=== PATIENT | female | born 1940 | race Two or more races ===

== ENCOUNTER 2018-05-24 11:35 | Inpatient (IN) | payer MEDICARE, OTHER ==
[~2018-05-24] VITALS: Ht 152.4 cm; Wt 61.8 kg
--- NOTE | 2018-05-24 12:00 | NUR ---
PT BIB [facility] FROM HOME FOR CHRONIC BACK PAIN THAT HAS WOSRENED LAST NIGHT, NAUSEA THIS MORNING. 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 DIFFERING BP IN EACH ARM (L 60 SBP, R 105 SBP). IV X2 IN PLACE ON ARRIVAL, GIVEN 4 ZOFRAN AND APPROX 800 ML NS IN ROUTE. CONNECTED TO ALL MONITORING, VSS, A&OX4, SLIGHTLY PALE COLOR. PREFORMED FAST EXAM, AAA SUSPECTED. ORDERS RECEIVED. ISTAT LABS TO BE DRAWN AND PT TO CT. AWAITING
--- NOTE | 2018-05-24 12:03 | NUR ---
PT BACK FROM CT AT THIS TIME. REPORT GIVEN TO JONO SOLIS.
[2018-05-24] MEDS ORDERED: ONDANSETRON 2MG/ML, 2ML ONE (12:10)
[2018-05-24] MEDS ORDERED: FENTANYL PF 100 MCG/2ML ONE (12:11)
[2018-05-24 12:15] LABS: BASOPHILS # (AUTO) 0.03 x10^3/uL (0-0.1); BASOPHILS % (AUTO) 0 % (0-1); EOSINOPHILS % (AUTO) 1 % (1-7); LYMPHOCYTES # (AUTO) 2.26 x10^3/uL (1-3.4); LYMPHOCYTES % (AUTO) 17 % (22-44); MD NO; MEAN CORPUSCULAR HEMOGLOBIN 31.8 pg (27.0-34.8); MEAN CORPUSCULAR HGB CONC 33.6 g/dL (32.4-35.8); MEAN CORPUSCULAR VOLUME 94.8 fL (80-100); MEAN PLATELET VOLUME 8.4 fL (7.4-10.4); MONOCYTES # (AUTO) 0.54 x10^3/uL (0.2-0.8); MONOCYTES % (AUTO) 4 % (2-9); NEUTROPHILS # (AUTO) 10.67 x10^3/uL (1.8-6.8); NEUTROPHILS % (AUTO) 79 % (42-75); PLATELET COUNT 226 x10^3/uL (130-400); RED CELL DISTRIBUTION WIDTH 13.1 % (9.6-15.2)
--- NOTE | 2018-05-24 12:16 | NUR ---
PT STATES FOOTE WAS GOING TO THROW UP. PT DRY HEAVED AND THEN BECAME INCREASINGLY LETHARGIC. PT IS CURRENTLY FOLLOWING COMMANDS INTERMITTENTLY, NOT ANSWERING QUESTION. MD TO BEDSIDE. RT TO BEDSIDE.
--- NOTE | 2018-05-24 12:24 | NUR ---
1ST UNIT O NEG PER MASSIVE INFUSION POLICY RUNNING NOW. LEVEL 1 INFUSING
[2018-05-24] MEDS ORDERED: HYDROmorphone 1 MG/ML, 1ML IV ONE (12:30)
[2018-05-24] MEDS ORDERED: FENTANYL PF 100 MCG/2ML IV ONE ×2 (12:30)
[2018-05-24] MEDS ORDERED: ONDANSETRON 2MG/ML, 2ML IVPush ONE (12:30)
--- NOTE | 2018-05-24 12:30 | NUR ---
2ND UNIT ON NEG PRBC INFUSING NOW. Addendum: 05/24/18 at 1230 by BLAYNE 2ND UNIT O-NEG PRBC INFUSING NOW.
[2018-05-24] MEDS ORDERED: PROTAMINE SULFATE 10 MG/ML, 5ML ONE (12:33)
[2018-05-24] MEDS ORDERED: NITROGLYCERIN 5 MG/ML, 10ML ONE (12:33)
[2018-05-24] MEDS ORDERED: FENTANYL PF 250 MCG/5ML ONE (12:34)
[2018-05-24] MEDS ORDERED: HEPARIN 1,000 UNITS/ML, 30ML ONE (12:34)
[2018-05-24] MEDS ORDERED: BACITRACIN 50,000 UNIT ONE (12:34)
[2018-05-24] MEDS ORDERED: THROMBIN 20,000 UNIT VIAL TP ONE (12:34)
[2018-05-24] MEDS ORDERED: HEPARIN 1,000 UNITS/ML, 10ML ONE (12:34)
--- NOTE | 2018-05-24 12:36 | NUR ---
2 UNITS PRBC COMPLETE. PT HAS HAD APPROX 100 ML NS THUS FAR.
[2018-05-24] MEDS ORDERED: KETAMINE 50 MG/ML, 10ML ONE (12:39)
--- NOTE | 2018-05-24 12:43 | NUR ---
PT HAD APPROX 6 SECOND RUN OF V TAC. PACER PADS IN PLACE.
--- NOTE | 2018-05-24 12:47 | NUR ---
REPORT TO Lissette HARRELL, ANESTHESIA, AT BEDSIDE.
--- NOTE | 2018-05-24 12:48 | NUR ---
1 LITER NS INFUSED THUS FAR IN ED.
--- NOTE | 2018-05-24 12:53 | NUR ---
REPORT TO OR, RN
[2018-05-24] MEDS ORDERED: EPINEPHRINE 1 MG/ML, 1ML ONE ×2 (13:00→13:09)
[2018-05-24] MEDS ORDERED: BUPIVACAINE/PF 0.25% ONE (13:00)
[2018-05-24] MEDS ORDERED: PHENYLEPHRINE 10 MG/ML ONE (13:09)
[2018-05-24] MEDS ORDERED: SUCCINYLCHOLINE 20 MG/ML, 10ML ONE ×2 (13:09→15:12)
[2018-05-24] MEDS ORDERED: ROCURONIUM 10 MG/ML,10ML ONE (13:09)
[2018-05-24] MEDS ORDERED: CALCIUM CHLORIDE 10%, 10ML SYR ONE (13:09)
[2018-05-24] MEDS ORDERED: KETAMINE 100 MG/ML, 5ML ONE (13:09)
[2018-05-24] MEDS ORDERED: SODIUM BICARB 8.4%, 50ML SYRINGE ONE (13:09)
--- NOTE | 2018-05-24 13:11 | NUR ---
PT TO OR.
[2018-05-24] MEDS ORDERED: MIDAZOLAM 1 MG/ML, 2ML ONE (13:34)
[2018-05-24] MEDS ORDERED: INSULIN SINGLE DOSE, ER SQ-INSULIN ONE (13:55)
[2018-05-24] MEDS ORDERED: OMNIPAQUE 350 MG/ML, 100ML BOTTLE ONE (14:03)
[2018-05-24] MEDS ORDERED: CEFAZOLIN 1,000 MG ONE (15:12)
[2018-05-24] MEDS ORDERED: PROPOFOL 10 MG/ML, 20ML ONE (15:12)
[2018-05-24] MEDS ORDERED: ROCURONIUM 10MG/ML,5ML ONE (15:12)
[2018-05-24] MEDS ORDERED: NS + 20MEQ KCL 1,000 ML IV SCH (15:47)
[2018-05-24] MEDS ORDERED: PROPOFOL 100 ML IV ONE (15:52)
[2018-05-24] MEDS ORDERED: OXYcodone IR 5MG TABLET PO PRN (16:00)
[2018-05-24] MEDS ORDERED: POLYETHYLENE GLYCOL 17 GM PACKET PO PRN (16:00)
[2018-05-24] MEDS ORDERED: ACETAMINOPHEN 325 MG TABLET PO PRN (16:00)
[2018-05-24] MEDS ORDERED: NITROPRUSSIDE 100 MG in DEXTROSE 5% 246 ML IV PRN (16:00)
[2018-05-24] MEDS ORDERED: BISACODYL 10 MG SUPP PR PRN (16:00)
[2018-05-24] MEDS ORDERED: NOREPINEPHRINE 4 MG in SODIUM CHLORIDE 0.9% 246 ML IV PRN (16:00)
[2018-05-24] MEDS: PROPOFOL 100 ML IV PRN (16:06)
[2018-05-24] MEDS ORDERED: NITROPRUSSIDE 50 MG in SODIUM CHLORIDE 0.9% 248 ML IV PRN (16:30)
[2018-05-24] MEDS ORDERED: CEFAZOLIN PMX 1GM/50ML 50 ML IVPB SCH (16:30)
[2018-05-24] MEDS ORDERED: LACTATED RINGERS 1,000 ML IV SCH (16:30)
[2018-05-24] MEDS: METOPROLOL 1 MG/ML, 5ML IVPush SCH ×2 (16:30→22:30)
[2018-05-24] MEDS ORDERED: ONDANSETRON 2MG/ML, 2ML IV PRN (16:30)
[2018-05-24] MEDS ORDERED: PROPOFOL 100 ML IV PRN (17:10)
[2018-05-24] MEDS ORDERED: PHARMACY MAY ADJ FOR RENAL FX MC SCH (17:30)
[2018-05-24] MEDS ORDERED: LIDOCAINE-MPF 1%, 2ML ENDO PRN (17:30)
[2018-05-24 18:45] LABS: INTERNATIONAL NORMALIZED RATIO 1.22 (0.93-1.1); PROTHROMBIN TIME 12.7 Seconds (9.6-11.5)
[2018-05-24 18:47] LABS: ANION GAP 13 mmol/L (5-15); CALCIUM 9.2 mg/dL (8.5-10.1); CHLORIDE 120 mmol/L (98-107); CREATININE 0.97 mg/dL (0.55-1.02); TRIGLYCERIDES 122 mg/dL (50-200)
[2018-05-24] MEDS: SODIUM CHLORIDE 0.45% 1,000 ML IV SCH (19:51)
[2018-05-24] MEDS: FAMOTIDINE 20 MG/2 ML IVPush SCH (21:06)
[2018-05-24] MEDS: INSULIN LISPRO 100 UNITS/ML, PEN SQ-INSULIN SCH (21:08)
[2018-05-24] MEDS: SODIUM CHLORIDE 0.45%, 1,000ML IVBOLUS PRN (21:34)
[2018-05-24] MEDS: CEFAZOLIN PMX 1GM/50ML 50 ML IVPB SCH (23:38)
[2018-05-25] MEDS: SODIUM CHLORIDE 0.45%, 1,000ML IVBOLUS PRN ×2 (00:39→06:19)
[2018-05-25] MEDS: morphine SULFATE 10 MG/ML, 1ML IVPush PRN ×2 (01:27→10:10)
[2018-05-25] MEDS: SODIUM CHLORIDE 0.45% 1,000 ML IV SCH ×3 (01:54→18:10)
[2018-05-25] MEDS: INSULIN LISPRO 100 UNITS/ML, PEN SQ-INSULIN SCH ×4 (03:00→20:37)
[2018-05-25 04:20] LABS: MEAN CORPUSCULAR HEMOGLOBIN 30.5 pg (27.0-34.8); MEAN CORPUSCULAR HGB CONC 33.4 g/dL (32.4-35.8); MEAN CORPUSCULAR VOLUME 91.3 fL (80-100); RED BLOOD COUNT 3.15 x10^6/uL (3.82-5.3); RED CELL DISTRIBUTION WIDTH 15.1 % (9.6-15.2)
[2018-05-25] MEDS: METOPROLOL 1 MG/ML, 5ML IVPush SCH ×3 (04:30→16:30)
[2018-05-25 04:32] LABS: ALBUMIN 2.3 g/dL (3.4-5.0); ANION GAP 9 mmol/L (5-15); CALCIUM 7.3 mg/dL (8.5-10.1); CHLORIDE 115 mmol/L (98-107)
[2018-05-25 04:37] LABS: HEMOGLOBIN A1C 5.5 % (4.2-6.3)
[2018-05-25 04:41] VITALS: BP 143/69
[2018-05-25 04:44] LABS: ALANINE AMINOTRANSFERASE 31 U/L (12-78); ALKALINE PHOSPHATASE 43 U/L (45-117); BILIRUBIN,TOTAL 0.7 mg/dL (0.2-1.0); CREATININE 1.33 mg/dL (0.55-1.02); TOTAL PROTEIN 4.5 g/dL (6.4-8.2)
[2018-05-25 05:24] LABS: PLATELET COUNT 145 x10^3/uL (130-400)
[2018-05-25 05:26] LABS: BASOPHILS # (AUTO) 0.03 x10^3/uL (0-0.1); BASOPHILS % (AUTO) 0 % (0-1); EOSINOPHILS % (AUTO) 0 % (1-7); LYMPHOCYTES # (AUTO) 2.68 x10^3/uL (1-3.4); LYMPHOCYTES % (AUTO) 13 % (22-44); MD SCAN; MONOCYTES # (AUTO) 1.83 x10^3/uL (0.2-0.8); MONOCYTES % (AUTO) 9 % (2-9); NEUTROPHILS # (AUTO) 15.52 x10^3/uL (1.8-6.8); NEUTROPHILS % (AUTO) 77 % (42-75)
[2018-05-25] MEDS: PROPOFOL 100 ML IV PRN ×2 (06:17→20:57)
[2018-05-25] MEDS ORDERED: MAGNESIUM SULFATE PMX 4GM/100M 100 ML IVPB ONE (07:00)
[2018-05-25] MEDS: CEFAZOLIN PMX 1GM/50ML 50 ML IVPB SCH ×3 (07:06→20:35)
[2018-05-25] MEDS: FAMOTIDINE 20 MG/2 ML IVPush SCH ×2 (08:46→20:35)
[2018-05-25] MEDS: SENNA/DOCUSATE TABLET PO SCH (08:47)
[2018-05-25] MEDS ORDERED: FUROSEMIDE 20 MG/2 ML IV ONE (09:00)
[2018-05-26] VITALS (8 sets, daily range): BP systolic 122–149; BP diastolic 52–70
[2018-05-26] MEDS: SODIUM CHLORIDE 0.45% 1,000 ML IV SCH ×2 (00:24→06:48)
[2018-05-26] MEDS: METOPROLOL 1 MG/ML, 5ML IVPush SCH ×4 (00:24→18:00)
[2018-05-26] MEDS: INSULIN LISPRO 100 UNITS/ML, PEN SQ-INSULIN SCH ×4 (03:00→20:43)
[2018-05-26 04:37] LABS: ALBUMIN 2.1 g/dL (3.4-5.0); ANION GAP 8 mmol/L (5-15); CHLORIDE 108 mmol/L (98-107)
[2018-05-26 04:40] LABS: ALANINE AMINOTRANSFERASE 54 U/L (12-78); ALKALINE PHOSPHATASE 39 U/L (45-117); BILIRUBIN,TOTAL 0.8 mg/dL (0.2-1.0); CREATININE 1.81 mg/dL (0.55-1.02); TOTAL PROTEIN 4.6 g/dL (6.4-8.2)
[2018-05-26 05:33] LABS: MEAN CORPUSCULAR HEMOGLOBIN 31.8 pg (27.0-34.8); MEAN CORPUSCULAR HGB CONC 34.4 g/dL (32.4-35.8); MEAN CORPUSCULAR VOLUME 92.4 fL (80-100); MEAN PLATELET VOLUME 9.3 fL (7.4-10.4); PLATELET COUNT 131 x10^3/uL (130-400); RED BLOOD COUNT 2.36 x10^6/uL (3.82-5.3); RED CELL DISTRIBUTION WIDTH 15.1 % (9.6-15.2)
[2018-05-26 05:55] LABS: MD YES
[2018-05-26 05:57] LABS: ANISOCYTOSIS 1+; BAND#(MANUAL) 0.47 x10^3/uL; BANDS%(MANUAL) 2 % (0-7); LYMPH#(MANUAL) 4.03 x10^3/uL (1-3.4); LYMPHS% (MANUAL) 17 % (22-44); MONOS% (MANUAL) 8 % (2-9); SEGS% (MANUAL) 73 % (42-75)
[2018-05-26 05:58] LABS: <PLATELET ESTIMATE> ADEQUATE; <PLT MORPHOLOGY> NORMAL PLT MORPH
[2018-05-26] MEDS ORDERED: SODIUM CHLORIDE 0.45% 1,000 ML IV SCH (09:00)
[2018-05-26] MEDS: SENNA/DOCUSATE TABLET PO SCH (09:00)
[2018-05-26] MEDS ORDERED: FUROSEMIDE 20 MG/2 ML IV ONE ×2 (09:30→19:30)
[2018-05-26] MEDS ORDERED: POTASSIUM CHLORIDE 40 MEQ in SODIUM CHLORIDE 0.9% 100 ML IV ONE (09:30)
[2018-05-26] MEDS ORDERED: POTASSIUM CHLORIDE 40 MEQ in LACTATED RINGERS 1,000 ML IV SCH (09:30)
[2018-05-26] MEDS: CEFAZOLIN PMX 1GM/50ML 50 ML IVPB SCH ×2 (09:44→20:37)
[2018-05-26] MEDS: FAMOTIDINE 20 MG/2 ML IVPush SCH (09:44)
[2018-05-26] MEDS: PROPOFOL 100 ML IV PRN (16:11)
[2018-05-26 18:52] LABS: MEAN CORPUSCULAR HEMOGLOBIN 31.9 pg (27.0-34.8); MEAN CORPUSCULAR HGB CONC 34.5 g/dL (32.4-35.8); MEAN CORPUSCULAR VOLUME 92.4 fL (80-100); MEAN PLATELET VOLUME 8.4 fL (7.4-10.4); PLATELET COUNT 126 x10^3/uL (130-400); RED BLOOD COUNT 2.12 x10^6/uL (3.82-5.3)
[2018-05-26 18:53] LABS: MD YES
[2018-05-26 18:58] LABS: BAND#(MANUAL) 0.22 x10^3/uL; BANDS%(MANUAL) 1 % (0-7); LYMPH#(MANUAL) 1.95 x10^3/uL (1-3.4); LYMPHS% (MANUAL) 9 % (22-44); METAMYELOCYTES# (MANUAL) 0.22 x10^3/uL (0-0); METAMYELOCYTES% (MANUAL) 1 % (0-1); MONOS#(MANUAL) 2.17 x10^3/uL (0.3-2.7); MONOS% (MANUAL) 10 % (2-9); NRBC % (MANUAL) 1 % (0-1); SEG#(MANUAL) 17.14 x10^3/uL (1.8-6.8); SEGS% (MANUAL) 79 % (42-75)
[2018-05-26 18:59] LABS: ANISOCYTOSIS 1+
[2018-05-26 19:00] LABS: <PLATELET ESTIMATE> DECREASED; <PLT MORPHOLOGY> NORMAL PLT MORPH
[2018-05-26] MEDS: morphine SULFATE 10 MG/ML, 1ML IVPush PRN (23:28)
[2018-05-27] MEDS: METOPROLOL 1 MG/ML, 5ML IVPush SCH ×4 (00:52→18:00)
[2018-05-27] MEDS: INSULIN LISPRO 100 UNITS/ML, PEN SQ-INSULIN SCH ×4 (03:00→21:15)
[2018-05-27] MEDS: PROPOFOL 100 ML IV PRN (03:13)
[2018-05-27 03:45] LABS: MEAN CORPUSCULAR HGB CONC 34.8 g/dL (32.4-35.8); MEAN CORPUSCULAR VOLUME 89.2 fL (80-100); MEAN PLATELET VOLUME 8.3 fL (7.4-10.4); PLATELET COUNT 112 x10^3/uL (130-400); RED BLOOD COUNT 3.22 x10^6/uL (3.82-5.3); RED CELL DISTRIBUTION WIDTH 15.9 % (9.6-15.2)
[2018-05-27 03:49] LABS: ALANINE AMINOTRANSFERASE 35 U/L (12-78); ANION GAP 9 mmol/L (5-15); CHLORIDE 112 mmol/L (98-107); CREATININE 1.09 mg/dL (0.55-1.02); TRIGLYCERIDES 243 mg/dL (50-200)
[2018-05-27 03:51] LABS: ALKALINE PHOSPHATASE 58 U/L (45-117); TOTAL PROTEIN 4.9 g/dL (6.4-8.2)
[2018-05-27 04:00] VITALS: BP 112/50
[2018-05-27 04:16] LABS: MD YES
[2018-05-27 04:20] LABS: ANISOCYTOSIS 1+; BAND#(MANUAL) 0.21 x10^3/uL; BANDS%(MANUAL) 1 % (0-7); EOS#(MANUAL) 0.21 x10^3/uL (0.0-0.4); EOS% (MANUAL) 1 % (1-7); LYMPH#(MANUAL) 1.46 x10^3/uL (1-3.4); LYMPHS% (MANUAL) 7 % (22-44); MONOS#(MANUAL) 1.88 x10^3/uL (0.3-2.7); MONOS% (MANUAL) 9 % (2-9); SEG#(MANUAL) 17.14 x10^3/uL (1.8-6.8); SEGS% (MANUAL) 82 % (42-75)
[2018-05-27 04:21] LABS: <PLATELET ESTIMATE> DECREASED
[2018-05-27 04:22] LABS: <PLT MORPHOLOGY> NORMAL PLT MORPH; POLYCHROMASIA 1+
[2018-05-27] MEDS: SENNA/DOCUSATE TABLET PO SCH (09:00)
[2018-05-27] MEDS: FAMOTIDINE 20 MG/2 ML IVPush SCH (09:01)
[2018-05-27] MEDS: CEFAZOLIN PMX 1GM/50ML 50 ML IVPB SCH (09:02)
[2018-05-27] MEDS ORDERED: FUROSEMIDE 20 MG/2 ML IV SCH (09:20)
[2018-05-27] MEDS: morphine SULFATE 10 MG/ML, 1ML IVPush PRN ×3 (11:44→20:19)
[2018-05-27] MEDS: LABETALOL 5 MG/ML SYRINGE IV PRN ×4 (13:50→15:29)
[2018-05-27] MEDS ORDERED: hydrALAzine 20 MG/ML, 1ML IV PRN (16:00)
[2018-05-27] MEDS ORDERED: ENALAPRILAT 1.25 MG/ML, 2ML IV SCH (16:00)
[2018-05-27] MEDS ORDERED: POTASSIUM CHLORIDE 40 MEQ in SODIUM CHLORIDE 0.9% 100 ML IV ONE (16:00)
[2018-05-27] MEDS: AMPICILLIN/SULBACTAM 3 GM in SODIUM CHLORIDE 0.9% 100 ML IV SCH (16:16)
[2018-05-27] MEDS: hydrALAzine 20 MG/ML, 1ML IV PRN (19:58)
[2018-05-27] MEDS: ENALAPRILAT 1.25 MG/ML, 2ML IV SCH (21:08)
[2018-05-27] MEDS: FUROSEMIDE 20 MG/2 ML IV SCH (21:08)
[2018-05-28] MEDS: METOPROLOL 1 MG/ML, 5ML IVPush SCH ×5 (00:38→23:56)
[2018-05-28] MEDS: AMPICILLIN/SULBACTAM 3 GM in SODIUM CHLORIDE 0.9% 100 ML IV SCH ×4 (00:38→20:23)
[2018-05-28] MEDS: hydrALAzine 20 MG/ML, 1ML IV PRN (01:22)
[2018-05-28] MEDS: morphine SULFATE 10 MG/ML, 1ML IVPush PRN ×3 (01:37→23:57)
[2018-05-28] MEDS: LABETALOL 5 MG/ML SYRINGE IVPush PRN (03:04)
[2018-05-28] MEDS: INSULIN LISPRO 100 UNITS/ML, PEN SQ-INSULIN SCH ×3 (03:54→15:00)
[2018-05-28] MEDS: ENALAPRILAT 1.25 MG/ML, 2ML IV SCH ×4 (04:03→21:53)
[2018-05-28 04:14] LABS: MEAN CORPUSCULAR HEMOGLOBIN 31.4 pg (27.0-34.8); MEAN CORPUSCULAR HGB CONC 34.5 g/dL (32.4-35.8); MEAN CORPUSCULAR VOLUME 90.9 fL (80-100); PLATELET COUNT 130 x10^3/uL (130-400); RED BLOOD COUNT 3.41 x10^6/uL (3.82-5.3)
[2018-05-28 04:26] LABS: ANION GAP 7 mmol/L (5-15); CALCIUM 7.4 mg/dL (8.5-10.1); CHLORIDE 113 mmol/L (98-107); CREATININE 0.72 mg/dL (0.55-1.02)
[2018-05-28 04:32] LABS: BASOPHILS # (AUTO) 0.01 x10^3/uL (0-0.1); BASOPHILS % (AUTO) 0 % (0-1); EOSINOPHILS # (AUTO) 0.05 x10^3/uL (0-0.4); EOSINOPHILS % (AUTO) 0 % (1-7); LYMPHOCYTES # (AUTO) 1.41 x10^3/uL (1-3.4); LYMPHOCYTES % (AUTO) 8 % (22-44); MD SCAN; MONOCYTES # (AUTO) 1.97 x10^3/uL (0.2-0.8); MONOCYTES % (AUTO) 11 % (2-9); NEUTROPHILS # (AUTO) 14.55 x10^3/uL (1.8-6.8); NEUTROPHILS % (AUTO) 81 % (42-75)
[2018-05-28] MEDS: SENNA/DOCUSATE TABLET PO SCH (09:00)
[2018-05-28] MEDS: FUROSEMIDE 20 MG/2 ML IV SCH ×2 (09:37→21:53)
[2018-05-28] MEDS: FAMOTIDINE 20 MG/2 ML IVPush SCH ×2 (09:37→21:54)
[2018-05-28] MEDS: [UNRECOGNIZED DRUG - OTHER] IV PRN ×2 (14:24→20:24)
[2018-05-28] MEDS: NICARDIPINE IV PRN ×2 (14:24→20:24)
[2018-05-29] MEDS: AMPICILLIN/SULBACTAM 3 GM in SODIUM CHLORIDE 0.9% 100 ML IV SCH ×4 (01:54→20:26)
[2018-05-29] MEDS: NICARDIPINE IV PRN ×2 (03:11→09:37)
[2018-05-29] MEDS: [UNRECOGNIZED DRUG - OTHER] IV PRN ×2 (03:11→09:37)
[2018-05-29] MEDS: ENALAPRILAT 1.25 MG/ML, 2ML IV SCH ×5 (04:08→20:25)
[2018-05-29] MEDS: morphine SULFATE 10 MG/ML, 1ML IVPush PRN ×4 (04:49→22:00)
[2018-05-29 05:21] LABS: MEAN CORPUSCULAR HEMOGLOBIN 30.8 pg (27.0-34.8); MEAN CORPUSCULAR VOLUME 90.7 fL (80-100); MEAN PLATELET VOLUME 7.8 fL (7.4-10.4); PLATELET COUNT 194 x10^3/uL (130-400); RED BLOOD COUNT 3.77 x10^6/uL (3.82-5.3); RED CELL DISTRIBUTION WIDTH 15.4 % (9.6-15.2)
[2018-05-29 06:18] LABS: BASOPHILS # (AUTO) 0.07 x10^3/uL (0-0.1); BASOPHILS % (AUTO) 1 % (0-1); EOSINOPHILS # (AUTO) 0.08 x10^3/uL (0-0.4); EOSINOPHILS % (AUTO) 1 % (1-7); LYMPHOCYTES # (AUTO) 1.42 x10^3/uL (1-3.4); LYMPHOCYTES % (AUTO) 10 % (22-44); MD SCAN; MONOCYTES # (AUTO) 2.01 x10^3/uL (0.2-0.8); MONOCYTES % (AUTO) 14 % (2-9); NEUTROPHILS % (AUTO) 75 % (42-75)
[2018-05-29] MEDS: METOPROLOL 1 MG/ML, 5ML IVPush SCH ×4 (06:48→20:26)
[2018-05-29] MEDS: SENNA/DOCUSATE TABLET PO SCH (09:00)
[2018-05-29] MEDS ORDERED: AMLODIPINE 5 MG TABLET PO SCH (09:00)
[2018-05-29] MEDS: FAMOTIDINE 20 MG/2 ML IVPush SCH ×2 (09:32→20:25)
[2018-05-29] MEDS: FUROSEMIDE 20 MG/2 ML IV SCH (09:33)
[2018-05-29 11:01] LABS: ALBUMIN 2.6 g/dL (3.4-5.0); ANION GAP 6 mmol/L (5-15); CALCIUM 8.3 mg/dL (8.5-10.1); CHLORIDE 111 mmol/L (98-107)
[2018-05-29 11:05] LABS: ALANINE AMINOTRANSFERASE 33 U/L (12-78); ALKALINE PHOSPHATASE 167 U/L (45-117); BILIRUBIN,TOTAL 2.7 mg/dL (0.2-1.0); CREATININE 0.58 mg/dL (0.55-1.02); TOTAL PROTEIN 7.3 g/dL (6.4-8.2)
[2018-05-29] MEDS: hydrALAzine 20 MG/ML, 1ML IV PRN (13:00)
[2018-05-29] MEDS ORDERED: POTASSIUM CHLORIDE 40 MEQ in SODIUM CHLORIDE 0.9% 500 ML IV ONE ×2 (14:00→20:30)
[2018-05-29] MEDS: LORazepam 2 MG/ML, 1ML IVPush PRN (23:32)
[2018-05-30] MEDS: METOPROLOL 1 MG/ML, 5ML IVPush SCH ×4 (01:24→20:08)
[2018-05-30] MEDS: ENALAPRILAT 1.25 MG/ML, 2ML IV SCH ×4 (01:25→20:00)
[2018-05-30] MEDS: AMPICILLIN/SULBACTAM 3 GM in SODIUM CHLORIDE 0.9% 100 ML IV SCH ×4 (02:11→19:48)
[2018-05-30] MEDS: morphine SULFATE 10 MG/ML, 1ML IVPush PRN ×4 (02:50→23:56)
[2018-05-30] MEDS: hydrALAzine 20 MG/ML, 1ML IV PRN ×3 (04:23→22:10)
[2018-05-30 04:25] LABS: MEAN CORPUSCULAR HEMOGLOBIN 31.2 pg (27.0-34.8); MEAN CORPUSCULAR HGB CONC 34.2 g/dL (32.4-35.8); MEAN CORPUSCULAR VOLUME 91.2 fL (80-100); MEAN PLATELET VOLUME 7.9 fL (7.4-10.4); PLATELET COUNT 256 x10^3/uL (130-400); RED BLOOD COUNT 3.82 x10^6/uL (3.82-5.3); RED CELL DISTRIBUTION WIDTH 15.4 % (9.6-15.2)
[2018-05-30 04:32] LABS: ALANINE AMINOTRANSFERASE 30 U/L (12-78); ALBUMIN 2.5 g/dL (3.4-5.0); ANION GAP 6 mmol/L (5-15); CALCIUM 8.1 mg/dL (8.5-10.1); CHLORIDE 118 mmol/L (98-107); CREATININE 0.59 mg/dL (0.55-1.02)
[2018-05-30 04:34] LABS: ALKALINE PHOSPHATASE 139 U/L (45-117); BILIRUBIN,TOTAL 3.6 mg/dL (0.2-1.0); TOTAL PROTEIN 7.2 g/dL (6.4-8.2)
[2018-05-30 05:14] LABS: BASOPHILS # (AUTO) 0.02 x10^3/uL (0-0.1); BASOPHILS % (AUTO) 0 % (0-1); EOSINOPHILS # (AUTO) 0.01 x10^3/uL (0-0.4); EOSINOPHILS % (AUTO) 0 % (1-7); LYMPHOCYTES # (AUTO) 1.23 x10^3/uL (1-3.4); LYMPHOCYTES % (AUTO) 6 % (22-44); MD SCAN; MONOCYTES % (AUTO) 10 % (2-9); NEUTROPHILS # (AUTO) 17.73 x10^3/uL (1.8-6.8); NEUTROPHILS % (AUTO) 84 % (42-75)
[2018-05-30] MEDS: FAMOTIDINE 20 MG/2 ML IVPush SCH ×2 (08:59→20:40)
[2018-05-30] MEDS ORDERED: POTASSIUM CHLORIDE 40 MEQ in SODIUM CHLORIDE 0.9% 500 ML IV ONE (09:00)
[2018-05-30] MEDS ORDERED: FUROSEMIDE 20 MG/2 ML IV SCH (09:00)
[2018-05-30] MEDS: AMLODIPINE 5 MG TABLET PO SCH (13:00)
[2018-05-30] MEDS: LABETALOL 5 MG/ML SYRINGE IVPush PRN ×2 (18:38→23:46)
[2018-05-30] MEDS: LORazepam 2 MG/ML, 1ML IVPush PRN (22:33)
[2018-05-31] MEDS: AMPICILLIN/SULBACTAM 3 GM in SODIUM CHLORIDE 0.9% 100 ML IV SCH ×4 (02:50→22:28)
[2018-05-31] MEDS: ENALAPRILAT 1.25 MG/ML, 2ML IV SCH (02:52)
[2018-05-31] MEDS: METOPROLOL 1 MG/ML, 5ML IVPush SCH ×2 (02:55→09:32)
[2018-05-31 07:22] LABS: MEAN CORPUSCULAR HEMOGLOBIN 29.8 pg (27.0-34.8); MEAN CORPUSCULAR HGB CONC 32.4 g/dL (32.4-35.8); MEAN CORPUSCULAR VOLUME 91.8 fL (80-100); PLATELET COUNT 309 x10^3/uL (130-400)
[2018-05-31 07:29] LABS: ALANINE AMINOTRANSFERASE 30 U/L (12-78); ALBUMIN 2.5 g/dL (3.4-5.0); ANION GAP 6 mmol/L (5-15); CALCIUM 8.4 mg/dL (8.5-10.1); CHLORIDE 123 mmol/L (98-107); CREATININE 0.72 mg/dL (0.55-1.02)
[2018-05-31 07:33] LABS: ALKALINE PHOSPHATASE 110 U/L (45-117); BILIRUBIN,TOTAL 6.1 mg/dL (0.2-1.0); TOTAL PROTEIN 7.2 g/dL (6.4-8.2)
[2018-05-31 07:34] LABS: MD YES
[2018-05-31 07:38] LABS: BAND#(MANUAL) 0.25 x10^3/uL; BANDS%(MANUAL) 1 % (0-7); LYMPHS% (MANUAL) 8 % (22-44); MONOS% (MANUAL) 4 % (2-9); SEG#(MANUAL) 21.75 x10^3/uL (1.8-6.8); SEGS% (MANUAL) 87 % (42-75)
[2018-05-31 07:40] LABS: ANISOCYTOSIS 1+; POLYCHROMASIA 1+
[2018-05-31 07:41] LABS: <PLATELET ESTIMATE> ADEQUATE; <PLT MORPHOLOGY> NORMAL PLT MORPH
[2018-05-31] MEDS ORDERED: HALOPERIDOL 5 MG/ML IVPush PRN (09:00)
[2018-05-31] MEDS ORDERED: D5%-0.45NACL+KCL 40MEQ 1,000 ML IV SCH (09:00)
[2018-05-31] MEDS: FAMOTIDINE 20 MG/2 ML IVPush SCH ×2 (09:32→20:58)
[2018-05-31] MEDS: QUETIAPINE 25MG TABLET PO SCH ×2 (09:33→20:58)
[2018-05-31] MEDS: AMLODIPINE 5 MG TABLET PO SCH (09:33)
[2018-05-31] MEDS: hydrALAzine 20 MG/ML, 1ML IV PRN (10:44)
[2018-05-31] MEDS: LISINOPRIL 10 MG TABLET PO SCH ×2 (12:33→20:58)
[2018-05-31] MEDS: POTASSIUM CHLORIDE 40 MEQ in D5%-0.2% NACL 1,000 ML IV SCH (12:40)
[2018-05-31] MEDS: ENOXAPARIN 40 MG/0.4 ML SQ SCH (12:40)
[2018-05-31] MEDS: POTASSIUM PHOSPHATE 44 MEQ in DEXTROSE 5% 500 ML IV SCH ×2 (12:40→21:29)
[2018-05-31] MEDS: METOPROLOL TARTRATE 25 MG TABLET PO SCH (17:57)
[2018-05-31] MEDS ORDERED: QUETIAPINE 25MG TABLET PO PRN (21:00)
[2018-06-01] MEDS: AMPICILLIN/SULBACTAM 3 GM in SODIUM CHLORIDE 0.9% 100 ML IV SCH ×4 (03:49→23:48)
[2018-06-01 04:45] LABS: ALBUMIN 2.1 g/dL (3.4-5.0); ANION GAP 5 mmol/L (5-15); CALCIUM 7.7 mg/dL (8.5-10.1); CHLORIDE 121 mmol/L (98-107)
[2018-06-01 04:49] LABS: ALANINE AMINOTRANSFERASE 36 U/L (12-78); ALKALINE PHOSPHATASE 87 U/L (45-117); BILIRUBIN,TOTAL 3.8 mg/dL (0.2-1.0); CREATININE 0.89 mg/dL (0.55-1.02); TOTAL PROTEIN 6.3 g/dL (6.4-8.2)
[2018-06-01 04:51] LABS: BILIRUBIN, DIRECT 1.8 mg/dL (0.1-0.2)
[2018-06-01 04:53] LABS: BASOPHILS # (AUTO) 0.05 x10^3/uL (0-0.1); BASOPHILS % (AUTO) 0 % (0-1); EOSINOPHILS # (AUTO) 0.03 x10^3/uL (0-0.4); EOSINOPHILS % (AUTO) 0 % (1-7); LYMPHOCYTES # (AUTO) 2.26 x10^3/uL (1-3.4); LYMPHOCYTES % (AUTO) 13 % (22-44); MD SCAN; MEAN CORPUSCULAR HEMOGLOBIN 30.1 pg (27.0-34.8); MEAN CORPUSCULAR HGB CONC 32.6 g/dL (32.4-35.8); MEAN CORPUSCULAR VOLUME 92.3 fL (80-100); MEAN PLATELET VOLUME 8.7 fL (7.4-10.4); MONOCYTES # (AUTO) 0.88 x10^3/uL (0.2-0.8); MONOCYTES % (AUTO) 5 % (2-9); NEUTROPHILS % (AUTO) 81 % (42-75); PLATELET COUNT 284 x10^3/uL (130-400); RED BLOOD COUNT 3.61 x10^6/uL (3.82-5.3); RED CELL DISTRIBUTION WIDTH 16.2 % (9.6-15.2)
[2018-06-01] MEDS: POTASSIUM CHLORIDE 40 MEQ in D5%-0.2% NACL 1,000 ML IV SCH (04:58)
[2018-06-01] MEDS: METOPROLOL TARTRATE 25 MG TABLET PO SCH ×2 (07:15→17:35)
[2018-06-01] MEDS ORDERED: NOREPINEPHRINE 1 MG/ML, 4ML ONE (10:35)
[2018-06-01] MEDS: LISINOPRIL 10 MG TABLET PO SCH (11:12)
[2018-06-01] MEDS: AMLODIPINE 5 MG TABLET PO SCH (11:12)
[2018-06-01] MEDS: FAMOTIDINE 20 MG/2 ML IVPush SCH (11:12)
[2018-06-01 12:50] VITALS: BP 145/75
[2018-06-01] MEDS: ENOXAPARIN 40 MG/0.4 ML SQ SCH (13:15)
[2018-06-01 19:42] VITALS: BP 106/69
[2018-06-01] MEDS: LISINOPRIL 20 MG TABLET PO SCH (22:32)
[2018-06-02 02:04] VITALS: BP 125/65
[2018-06-02] MEDS: METOPROLOL TARTRATE 25 MG TABLET PO SCH (05:18)
[2018-06-02] MEDS: AMPICILLIN/SULBACTAM 3 GM in SODIUM CHLORIDE 0.9% 100 ML IV SCH ×2 (05:18→12:22)
[2018-06-02 05:37] LABS: BASOPHILS # (AUTO) 0.03 x10^3/uL (0-0.1); BASOPHILS % (AUTO) 0 % (0-1); EOSINOPHILS # (AUTO) 0.11 x10^3/uL (0-0.4); EOSINOPHILS % (AUTO) 1 % (1-7); LYMPHOCYTES # (AUTO) 1.42 x10^3/uL (1-3.4); LYMPHOCYTES % (AUTO) 12 % (22-44); MD NO; MEAN CORPUSCULAR HGB CONC 33.5 g/dL (32.4-35.8); MEAN CORPUSCULAR VOLUME 92.5 fL (80-100); MEAN PLATELET VOLUME 8.3 fL (7.4-10.4); MONOCYTES # (AUTO) 0.95 x10^3/uL (0.2-0.8); MONOCYTES % (AUTO) 8 % (2-9); NEUTROPHILS # (AUTO) 9.52 x10^3/uL (1.8-6.8); NEUTROPHILS % (AUTO) 79 % (42-75); PLATELET COUNT 316 x10^3/uL (130-400); RED CELL DISTRIBUTION WIDTH 16.1 % (9.6-15.2)
[2018-06-02 05:41] LABS: CALCIUM 7.6 mg/dL (8.5-10.1); CHLORIDE 120 mmol/L (98-107)
[2018-06-02 06:01] LABS: ALANINE AMINOTRANSFERASE 45 U/L (12-78); ALBUMIN 2.2 g/dL (3.4-5.0); ALKALINE PHOSPHATASE 88 U/L (45-117); ANION GAP 5 mmol/L (5-15); CREATININE 0.72 mg/dL (0.55-1.02); TOTAL PROTEIN 6.4 g/dL (6.4-8.2)
[2018-06-02 07:32] VITALS: BP 134/74
[2018-06-02] MEDS: LISINOPRIL 20 MG TABLET PO SCH ×2 (09:55→21:34)
[2018-06-02] MEDS: ENOXAPARIN 40 MG/0.4 ML SQ SCH (13:29)
[2018-06-02 13:43] VITALS: BP 148/79
[2018-06-02 17:22] VITALS: BP 139/67
[2018-06-02] MEDS: CARVEDILOL 6.25 MG TABLET PO SCH (17:24)
[2018-06-02 19:14] VITALS: BP 143/72
[2018-06-03 01:10] VITALS: BP 148/73
[2018-06-03] MEDS: CARVEDILOL 6.25 MG TABLET PO SCH (05:05)
[2018-06-03 07:30] VITALS: BP 142/70
[2018-06-03] MEDS: LISINOPRIL 20 MG TABLET PO SCH (08:38)
[2018-06-03] MEDS ORDERED: ACET325T14 PO (09:06)
[2018-06-03] MEDS ORDERED: LISI-170 PO (09:06)
[2018-06-03] MEDS ORDERED: OXYC5TAB3 PO (09:06)
[2018-06-03] MEDS ORDERED: ENOX40SY4 SQ (09:06)
[2018-06-03] MEDS ORDERED: CARV6.2512 PO (09:06)
[2018-06-03] MEDS: ENOXAPARIN 40 MG/0.4 ML SQ SCH (12:27)
[2018-06-03 14:09] VITALS: BP 120/50
== END 2018-06-03 15:18 | DRG 268 ==
LOC: ED 12:27 → EDIP 12:59 → CCU 13:24 → 4NOR 06-01 12:30
PROVIDERS: ADMIT Surgery; ATTEND Surgery
PROC: 04100J8 Bypass Abdominal Aorta to Bilateral Common Iliac Arteries with Synthetic Substitute, Open Approach (ICD-10-PCS; 2018-05-24)
PROC: 30233K1 Transfusion of Nonautologous Frozen Plasma into Peripheral Vein, Percutaneous Approach (ICD-10-PCS; 2018-05-24)
PROC: 30233N1 Transfusion of Nonautologous Red Blood Cells into Peripheral Vein, Percutaneous Approach (ICD-10-PCS; 2018-05-24)
PROC: 03HY32Z Insertion of Monitoring Device into Upper Artery, Percutaneous Approach (ICD-10-PCS; 2018-05-24)
PROC: 02HV33Z Insertion of Infusion Device into Superior Vena Cava, Percutaneous Approach (ICD-10-PCS; 2018-05-24)
PROC: B548ZZA Ultrasonography of Superior Vena Cava, Guidance (ICD-10-PCS; 2018-05-24)
PROC: 5A1945Z Respiratory Ventilation, 24-96 Consecutive Hours (ICD-10-PCS; 2018-05-24)
PROC: 0BH17EZ Insertion of Endotracheal Airway into Trachea, Via Natural or Artificial Opening (ICD-10-PCS; 2018-05-24)
PROC: 03JY3ZZ Inspection of Upper Artery, Percutaneous Approach (ICD-10-PCS; 2018-05-24)
PROC: 04R00JZ Replacement of Abdominal Aorta with Synthetic Substitute, Open Approach (ICD-10-PCS; principal; 2018-05-24 13:30)
DX: I71.3 Abdominal aortic aneurysm, ruptured (principal); R57.8 Other shock; N17.0 Acute kidney failure with tubular necrosis; G93.41 Metabolic encephalopathy; J96.01 Acute respiratory failure with hypoxia; E87.0 Hyperosmolality and hypernatremia; J91.8 Pleural effusion in other conditions classified elsewhere; J98.11 Atelectasis; Z99.11 Dependence on respirator [ventilator] status; I11.9 Hypertensive heart disease without heart failure; D63.8 Anemia in other chronic diseases classified elsewhere; E87.6 Hypokalemia; E83.42 Hypomagnesemia; D72.829 Elevated white blood cell count, unspecified; D50.0 Iron deficiency anemia secondary to blood loss (chronic); E83.51 Hypocalcemia; I45.81 Long QT syndrome; Z91.14 Patient's other noncompliance with medication regimen; Z79.899 Other long term (current) drug therapy
CPT/HCPCS: 36415; 36600; 71045; 71275; 74018; 74174; 76700; 80047; 80048; 80053; 82247; 82248; 82330; 82803; 82947; 82962; 83036; 83735; 83880; 84100; 84132; 84145; 84295; 84443; 84478; 84484; 85014; 85018; 85025; 85610; 85730; 86850; 86900; 86923; 87070; 87081; 87205; 90471; 93005; 94002; 94003; 94150; 94667; 94668; 96374; C1768; C8929; G0378; J0171; J0295; J0690; J1644; J1650; J2250; J2405; J2704; J2720; J3010; J3480; J3490; Q9957; Q9967; 92523-GN; C1781; G0515-GN; J0330; J0360; J1815; J1940; J2060; J2270; J2370; J3475; J7040; J7050; J7060; J7120; P9016; P9017; P9035

== ENCOUNTER 2018-08-12 13:06 | Emergency (ER) | payer MEDICARE, OTHER ==
[~2018-08-12] VITALS: Ht 160 cm; Wt 53.1 kg
[~2018-08-12 13:06] MED LIST: ACET325T14 PO; CARV6.2512 PO; ENOX40SY4 SQ; LISI-170 PO; OXYC5TAB3 PO
--- NOTE | 2018-08-12 13:59 | NUR ---
PT PRESENTS TO ED FOR SYNCOPAL EPISODE TODAY. WITNESSED BY . FELL AND HIT HER HEAD WITH SMALL LAC TO POSTERIOR SCALP. + LOC. PER WITNESS, APPROX 1.5 MINS. PT IS A&OX4 AT THIS TIME. NEURO INTACT. PT IN C COLLAR AWAITING RADS. RESTING ON GURNEY, SIDERAILS UP X 2, CALL LIGHT IN REACH. CP MONITORS IN PLACE.
[2018-08-12 14:00] LABS: BASOPHILS # (AUTO) 0.03 x10^3/uL (0-0.1); BASOPHILS % (AUTO) 0 % (0-1); EOSINOPHILS # (AUTO) 0.28 x10^3/uL (0-0.4); EOSINOPHILS % (AUTO) 3 % (1-7); LYMPHOCYTES # (AUTO) 2.62 x10^3/uL (1-3.4); LYMPHOCYTES % (AUTO) 27 % (22-44); MD NO; MEAN CORPUSCULAR HEMOGLOBIN 31.4 pg (27.0-34.8); MEAN CORPUSCULAR HGB CONC 33.3 g/dL (32.4-35.8); MEAN CORPUSCULAR VOLUME 94.4 fL (80-100); MEAN PLATELET VOLUME 7.8 fL (7.4-10.4); MONOCYTES # (AUTO) 0.83 x10^3/uL (0.2-0.8); MONOCYTES % (AUTO) 8 % (2-9); NEUTROPHILS % (AUTO) 62 % (42-75); PLATELET COUNT 266 x10^3/uL (130-400); RED BLOOD COUNT 4.54 x10^6/uL (3.82-5.3); RED CELL DISTRIBUTION WIDTH 14.9 % (9.6-15.2)
[2018-08-12] MEDS ORDERED: LIDOCAINE-MPF 1%, 5ML INFIL ONE (14:00)
[2018-08-12] MEDS ORDERED: SODIUM CHLORIDE FLUSH 10ML SYR IVF ONE (14:00)
[2018-08-12 14:04] LABS: ALBUMIN 3.7 g/dL (3.4-5.0); ANION GAP 8 mmol/L (5-15); CALCIUM 8.7 mg/dL (8.5-10.1); CHLORIDE 103 mmol/L (98-107); CREATININE 1.46 mg/dL (0.55-1.02)
[2018-08-12 14:08] LABS: TROPONIN I < 0.015 ng/mL (0.000-0.045)
[2018-08-12] MEDS ORDERED: LIDOCAINE-MPF 1%, 5ML ONE ×2 (14:33→15:55)
--- NOTE | 2018-08-12 15:22 | NUR ---
LUNCH RN: PT HELPED TO USE BEDPAN. RAD COMPLETED. AWAITING CT AT THIS TIME. FAMILY AT BEDSIDE. CALL LIGHT WITHIN REACH. VSS
--- NOTE | 2018-08-12 16:07 | NUR ---
PROVIDER AT BEDSIDE FOR LAC REPAIR.
[2018-08-12 16:41] VITALS: BP 167/79
--- NOTE | 2018-08-12 16:43 | NUR ---
Patient/Caregiver given discharge instructions and they have confirmed that they understand the instructions. Patient ambulatory with steady gait. Pt left with all personal belongings.
== END 2018-08-12 16:48 | disposition home or self-care (01) ==
LOC: ED 15:34
DX: S01.01XA Laceration without foreign body of scalp, initial encounter (principal); R55 Syncope and collapse; E86.0 Dehydration; M25.511 Pain in right shoulder; I10 Essential (primary) hypertension; W22.8XXA Striking against or struck by other objects, initial encounter; Y93.89 Activity, other specified; Y92.89 Other specified places as the place of occurrence of the external cause; Y99.8 Other external cause status
CPT/HCPCS: 12001; 36415; 70450; 71045; 72125; 80048; 82040; 84484; 85025; 93005; 99284

== ENCOUNTER → 2019-09-24 | Outpatient (CLI) | payer MEDICARE, OTHER | END | disposition home or self-care (01) | LOC: CFH 09:07 | PROVIDERS: ATTEND Internal Medicine Cardiovascular Disease | DX: R94.31 Abnormal electrocardiogram [ECG] [EKG] (principal); I51.7 Cardiomegaly | CPT/HCPCS: 93306 ==

== ENCOUNTER → 2020-01-13 | Outpatient (CLI) | payer MEDICARE, OTHER | END | disposition home or self-care (01) | LOC: CFH 09:22 | PROVIDERS: ATTEND Internal Medicine Nephrology | DX: I71.4 Abdominal aortic aneurysm, without rupture (principal); I70.0 Atherosclerosis of aorta; R73.03 Prediabetes; I12.9 Hypertensive chronic kidney disease with stage 1 through stage 4 chronic kidney disease, or unspecified chronic kidney disease; N18.30 Chronic kidney disease, stage 3 unspecified; N17.9 Acute kidney failure, unspecified; E87.6 Hypokalemia | CPT/HCPCS: 93975 ==